=== PATIENT | female | born 1955 | race Asian ===

== ENCOUNTER 2019-11-18 06:05 | Day surgery (SDC) | payer OTHER ==
[~2019-11-18] VITALS: Ht 149.9 cm; Wt 39.5 kg
[~2019-11-18 06:05] MED LIST: SODIUM CHLORIDE 0.9% 1,000 ML ONE
[2019-11-18] MEDS ORDERED: BENZOCAINE 20% 50 MCG/SPRAY 57 GM TP ONE (06:06)
[2019-11-18] MEDS ORDERED: LIDOCAINE 2% 5 ML JELLY TP ONE (06:06)
[2019-11-18] MEDS ORDERED: LIDOCAINE 4% 50 ML SOLUTION TP ONE (06:06)
[2019-11-18] MEDS ORDERED: ALBUTEROL SULFATE 2.5 MG/0.5 ML NEB SOLUTION NEB ONE (06:06)
[2019-11-18] MEDS ORDERED: SODIUM CHLORIDE 0.9% 1,000 ML IV ONE (06:30)
[2019-11-18 07:06] LABS: GLUCOMETER DEV NAME(LOC) SDS.; GLUCOSE,POINT OF CARE 78 MG/DL (70-110)
[2019-11-18] MEDS ORDERED: OMEP20 PO (07:18)
[2019-11-18] MEDS ORDERED: FLUT16H NASAL (07:18)
[2019-11-18] MEDS ORDERED: LORA10TA7 PO (07:18)
[2019-11-18] MEDS ORDERED: ALBU8.5H8 IH (07:18)
[2019-11-18] MEDS ORDERED: MONT10TA21 PO (07:18)
[2019-11-18] MEDS ORDERED: TIOT4MIS2 IH (07:18)
[2019-11-18] MEDS ORDERED: LOSA25TA41 PO (07:18)
[2019-11-18] MEDS ORDERED: FLUT1AER5 IH (07:18)
[2019-11-18] MEDS ORDERED: IPRNEB IH (07:18)
[2019-11-18] MEDS ORDERED: AMLO5TAB9 PO (07:18)
[2019-11-18] MEDS ORDERED: P-EP-31 PO (07:18)
[2019-11-18] MEDS ORDERED: FEXO-58 PO (07:18)
[2019-11-18] MEDS ORDERED: PRED10 PO (07:18)
[2019-11-18] MEDS ORDERED: MIDAZOLAM HCL 2 MG/2 ML VIAL ONE (08:01)
[2019-11-18] MEDS ORDERED: FentaNYL CITRATE-PF 100 MCG/2 ML VIAL ONE (08:01)
[2019-11-18] MEDS ORDERED: MethylPREDNISolone SOD SUCC 125 MG/2 ML VIAL IVP ONE (08:45)
[2019-11-18] MEDS ORDERED: MethylPREDNISolone SOD SUCC 125 MG/2 ML VIAL ONE (08:53)
[2019-11-18] MEDS ORDERED: OXYGEN THERAPY IH SCH (20:00)
== END 2019-11-18 10:35 | disposition home or self-care (01) ==
LOC: SURGERY 06:05
PROVIDERS: ATTEND Internal Medicine Critical Care Medicine
DX: R05 Cough (principal); R91.1 Solitary pulmonary nodule; J34.89 Other specified disorders of nose and nasal sinuses; J38.4 Edema of larynx; B37.0 Candidal stomatitis; J45.909 Unspecified asthma, uncomplicated; I10 Essential (primary) hypertension; Z79.899 Other long term (current) drug therapy
CPT/HCPCS: 31623; 31624; 71045; 82962; 87015; 87070; 87101; 87205; 87206; 87220; 88108; 88312; J2250; J2930; J3010; J7030